=== PATIENT | female | born 1995 | race Caucasian/White ===

== ENCOUNTER 2018-05-16 12:23 | Emergency (ER) | payer OTHER ==
[~2018-05-16] VITALS: Ht 170.2 cm; Wt 60.7 kg
--- NOTE | 2018-05-16 13:09 | PHYS DOC ---
Past History Past Medical History: No Pertinent History Smoking: Non-smoker Adult General Chief Complaint Chief Complaint: NAUSEA/VOMITING/DIARRHEA HPI HPI Patient is a 22 year old female who presents with complaining of nausea and vomiting and diarrhea. Patient states she had vaginal discharge and foul- smelling for 3 weeks and treated with [id number] yeast infection without improvement of her condition and finally yesterday removed a retained tampon. Patient complaining of nausea and 2 episodes of vomiting since last night with 5 episodes of diarrhea and lower abdominal cramping pain without fever, sick contact, urinary symptoms. Patient denies . Review of Systems Review of Systems Constitutional: Denies fever or chills [] Eyes: Denies change in visual acuity, redness, or eye pain [] HENT: Denies nasal congestion or sore throat [] Respiratory: Denies cough or shortness of breath [] Cardiovascular: No additional information not addressed in HPI [] GI: Reports abdominal pain, nausea, vomiting, diarrhea [] : Denies dysuria or hematuria [] Musculoskeletal: Denies back pain or joint pain [] Integument: Denies rash or skin lesions [] Neurologic: Denies headache, focal weakness or sensory changes [] Endocrine: Denies polyuria or polydipsia [] All other systems were reviewed and found to be within normal limits, except as documented in this note. Current Medications Current Medications Current Medications Medications (Trade) Dose Ordered Sig/Cesar Start Time Stop Time Status Last Admin Dose Admin Ondansetron HCl (Zofran) 4 mg 1X ONCE 05/16/18 13:15 05/16/18 13:16 UNV Sodium Chloride 1,000 ml @ 1,000 mls/hr Q1H 05/16/18 13:01 05/16/18 14:00 UNV Physical Exam Physical Exam Constitutional: Well developed, well nourished, no acute distress, non-toxic appearance. [] HENT: Normocephalic, atraumatic, bilateral external ears normal, oropharynx moist, no oral exudates, nose normal. [] Eyes: PERRLA, EOMI, conjunctiva normal, no discharge. [] Neck: Normal range of motion, no tenderness, supple, no stridor. [] Cardiovascular:Heart rate regular rhythm, no murmur [] Lungs & Thorax: Bilateral breath sounds clear to auscultation [] Abdomen: Bowel sounds normal, soft, no tenderness, no masses, no pulsatile masses. Vaginal exam with present of cashier assistant did not show abnormality in external genitalia. Moderate discharge condition at that most of them was because of medication taking yesterday, no foul smelling or change of color of cervix or sign of inflammation or foreign body in cervix. Skin: Warm, dry, no erythema, no rash. [] Back: No tenderness, no CVA tenderness. [] Extremities: No tenderness, no cyanosis, no clubbing, ROM intact, no edema. [] Neurologic: Alert and oriented X 3, normal motor function, normal sensory function, no focal deficits noted. [] Psychologic: Affect normal, judgement normal, mood normal. [] EKG EKG [] Radiology/Procedures Radiology/Procedures [] Course & Med Decision Making Course & Med Decision Making Pertinent Labs reviewed. (See chart for details) Evaluation of patient in ER showed 22-year-old female patient with complaining of nausea and vomiting and diarrhea and vaginal discharge after retained tampon. Patient had unremarkable physical exam and labs including wet prep. Patient treated with IV fluid and Zofran and throat and felt better and tolerated oral intake. Dragon Disclaimer Dragon Disclaimer This electronic medical record was generated, in whole or in part, using a voice recognition dictation system. Departure Departure: Impression: Primary Impression: Acute gastroenteritis Additional Impression: Vaginal discharge Disposition: 01 HOME, SELF-CARE (at 1513) Condition: IMPROVED Referrals: KAILEY DE SANTIAGO (PCP) Patient Instructions: Viral Gastroenteritis Additional Instructions: Drink plenty of liquids Follow-up with your primary care physician in 3-5 days Return to ER if not getting better Scripts Ondansetron Hcl (ZOFRAN) 4 Mg Tablet 1 TAB PO Q6HRS for nausea and vomiting, #12 TAB Prov: KATHIE MARIE MD 05/16/18 Problem Qualifiers KATHIE MARIE MD May 16, 2018 13:09
[2018-05-16] MEDS ORDERED: ONDANSETRON PF 4 MG/2 ML VIAL. IV ONE (13:15)
[2018-05-16] MEDS ORDERED: IV NORMAL SALINE 1,000ML 1,000 ML IV SCH (13:30)
[2018-05-16 14:06] LABS: BASO % 0 % (0-3); EOS % 0 % (0-3); HEMATOCRIT 36.5 % (36.0-47.0); HEMOGLOBIN 12.4 g/dL (12.0-15.5); LYMPH % 12 % (24-48); MEAN CORPUSCULAR HEMOGLOBIN 30 pg (25-35); MEAN CORPUSCULAR HGB CONC 34 g/dL (31-37); MEAN CORPUSCULAR VOLUME 88 fL (79-100); MONO # 0.7 x10^3/uL (0.0-1.1); MONO % 9 % (0-9); NEUT # 6.6 x10^3uL (1.8-7.7); NEUT % 80 % (31-73); PLATELET COUNT 202 x10^3/uL (140-400); RED BLOOD COUNT 4.13 x10^6/uL (3.50-5.40); RED CELL DISTRIBUTION WIDTH 12.1 % (11.5-14.5); WHITE BLOOD COUNT 8.3 x10^3/uL (4.0-11.0)
[2018-05-16 14:22] LABS: PREG TEST PT QUAL NEGATIVE (NEG)
[2018-05-16 14:32] LABS: ALBUMIN 3.5 g/dL (3.4-5.0); ALBUMIN/GLOBULIN RATIO 0.9 (1.0-1.7); CALCIUM 9.2 mg/dL (8.5-10.1); CREATININE 0.7 mg/dL (0.6-1.0); GFR 102.8; POTASSIUM 3.8 mmol/L (3.5-5.1); TOTAL BILIRUBIN 0.7 mg/dL (0.2-1.0); TOTAL PROTEIN 7.3 g/dL (6.4-8.2)
[2018-05-16] MEDS ORDERED: KETOROLAC 30 MG/ML VIAL. ONE (15:04)
[2018-05-16 15:10] VITALS: BP 126/70
[2018-05-16 15:11] LABS: BACTERIA,URINE 0 /HPF (0-FEW); BILIRUBIN,URINE NEG (NEG); CLARITY,URINE CLEAR; COLOR,URINE STRAW; GLUCOSE,URINE NEG (NEG); NITRITE,URINE NEG (NEG); RBC,URINE 0 /HPF (0-2); SQUAMOUS EPITHELIAL CELL,UR OCC /LPF; UROBILINOGEN,URINE 0.2 mg/dL (0.2 mg/dL); WBC,URINE 0 /HPF (0-4)
[2018-05-16] MEDS ORDERED: ONDA4TAB7 PO (15:14)
[2018-05-16] MEDS ORDERED: KETOROLAC 30 MG/ML VIAL. IV ONE (15:15)
[2018-05-18 14:13] LABS: CHLAMYDIA PROBE Negative (Negative)
== END 2018-05-16 15:22 | disposition home or self-care (01) ==
LOC: ER 12:23
DX: K52.9 Noninfective gastroenteritis and colitis, unspecified (principal); N89.8 Other specified noninflammatory disorders of vagina
CPT/HCPCS: 36415; 80053; 81001; 83605; 83690; 84703; 85025; 87491; 87591; 96361; 96374; 96375; 99283; J1885; J2405; Q0111; 81025; J7030